=== PATIENT | male | born 1980 | race Hispanic/Latino ===

== ENCOUNTER 2017-04-25 11:54 | Emergency (ER) | payer OTHER ==
[~2017-04-25] VITALS: Ht 180.3 cm; Wt 91.4 kg
[2017-04-25] MEDS ORDERED: LISI-538 PO (12:13)
[2017-04-25 13:04] LABS: BASO % 0.5 % (0.0-1.0); EOS # 0.1 K/mm3 (0.0-0.50); EOS % 2.1 % (0.0-3.0); LARGE UNSTAINED CELL # 0.1 K/mm3 (0.0-0.4); LARGE UNSTAINED CELL % 1.5 % (0.0-4.0); LYMPH # 1.8 K/mm3 (1.5-4.5); LYMPH % 33.4 % (24.0-44.0); MEAN CORPUSCULAR HGB CONC 32.8 g/dl (32.0-36.5); MEAN CORPUSCULAR VOLUME 85.3 fl (80.0-96.0); MONO # 0.3 K/mm3 (0.0-0.8); MONO % 5.5 % (0.0-5.0); NEUTROPHILS # 2.9 K/mm3 (1.8-7.7); PLATELET COUNT, AUTOMATED 227 k/mm3 (150-450); WHITE BLOOD COUNT 5.2 K/mm3 (4.0-10.0)
[2017-04-25 13:10] VITALS: BP 166/104
[2017-04-25] MEDS ORDERED: LABETALOL HCL 100 MG/20 ML VIAL IV STA (13:10)
[2017-04-25 13:35] LABS: ALBUMIN 4.1 GM/DL (3.2-5.2); ALBUMIN/GLOBULIN RATIO 1.28 (1.00-1.93); ALKALINE PHOSPHATASE 63 U/L (45-117); ALT/SGPT 44 U/L (12-78); ANION GAP 7 MEQ/L (8-16); AST/SGOT 16 U/L (15-37); BILIRUBIN,DIRECT < 0.1 MG/DL (0.0-0.2); BILIRUBIN,TOTAL 0.4 MG/DL (0.2-1.0); BLOOD UREA NITROGEN 10 MG/DL (7-18); CALCIUM LEVEL 8.8 MG/DL (8.5-10.1); CARBON DIOXIDE LEVEL 27 MEQ/L (21-32); CHLORIDE LEVEL 106 MEQ/L (98-107); CREATININE FOR GFR 0.93 MG/DL (0.70-1.30); FREE T4 0.85 NG/DL (0.76-1.46); GLOMERULAR FILTRATION RATE > 60.0 (>60); GLUCOSE, FASTING 131 MG/DL (70-105); POTASSIUM SERUM 3.6 MEQ/L (3.5-5.1); SODIUM LEVEL 140 MEQ/L (136-145); TOTAL PROTEIN 7.3 GM/DL (6.4-8.2)
[2017-04-25] MEDS ORDERED: amLODIPine 5 MG TAB PO ONE (14:15)
--- NOTE | 2017-04-25 14:37 | REP ---
SINGLE VIEW CHEST: There is no evidence of acute infiltrate. No pleural effusion is seen. The heart is normal in size. The mediastinal silhouette is unremarkable. The visualized osseous structures are intact. IMPRESSION: No acute pulmonary disease. Signed by Carlin Benoit MD 04/25/2017 05:03 P
--- NOTE | 2017-04-25 14:56 | REP ---
SCROTAL ULTRASOUND: Real-time sonographic evaluation of the scrotum and its contents performed. The testicles are normal in size and echotexture, right testicle measuring 4.4 x 2.0 x 3.1 cm and the left testicle 4.4 x 2.2 x 3.3 cm. There is no testicular mass or torsion with blood flow seen in each testicle with duplex Doppler evaluation, RI right testicle is 0.63 and the left testicle 0.50. There are small bilateral hydroceles. The left epididymis demonstrates somewhat heterogenous echotexture with increased size in the body and tail possibly representing mild epididymitis on the left. IMPRESSION: No testicular mass or torsion. Possible mild left-sided epididymitis. Small hydroceles. Signed by Carlin Benoit MD 04/25/2017 05:04 P
[2017-04-25] MEDS ORDERED: cefTRIAXone SOD 250 MG VIAL (J0696) IM ONE (16:00)
[2017-04-25] MEDS ORDERED: DOXYCYCLINE HYCLATE 100 MG TAB PO ONE (16:00)
[2017-04-25] MEDS ORDERED: LIDOCAINE 1% MDV 20ML VIAL As Ordered ONE (18:01)
[2017-04-25] MEDS ORDERED: DOXY100C37 PO (19:09)
[2017-04-25] MEDS ORDERED: AMLO5TAB2 PO (19:10)
[2017-04-25 19:38] VITALS: BP 148/82
--- NOTE | 2017-04-25 20:00 | ECGEPIP ---
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
--- NOTE | 2017-04-25 20:08 | ECGEPIP ---
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
== END 2017-04-25 19:39 | disposition home or self-care (01) ==
LOC: M ED 11:54
DX: N45.1 Epididymitis (principal); I10 Essential (primary) hypertension; Z87.891 Personal history of nicotine dependence
CPT/HCPCS: 71010; 76870; 80048; 80076; 81001; 82550; 82553; 83690; 83880; 84439; 84443; 85025; 87086; 87491; 87591; 93005; 93041; 93976; 94760; 96372; 96374; 99285; J0696